=== PATIENT | female | born 1935 | race Caucasian/White ===

== ENCOUNTER → 2019-09-06 | Day surgery (SDC) | payer OTHER ==
--- NOTE | 2019-09-08 01:46 | OP ---
DATE OF OPERATION: 09/06/2019 PREOPERATIVE DIAGNOSIS: Right breast mass 8 o'clock, 1 cm from the nipple. POSTOPERATIVE DIAGNOSIS: Right breast mass 8 o'clock, 1 cm from the nipple. PROCEDURE: Right breast ultrasound-guided core biopsy and U-shaped clip placement. ANESTHESIA: Local. SURGEON: Mariely Rivera MD ESTIMATED BLOOD LOSS: Minimal. COMPLICATIONS: None. DESCRIPTION OF PROCEDURE: Patient was made aware of the risks and benefits of the procedure and consented. She was placed in the supine position. Under sterile conditions with 2% lidocaine for local anesthesia, a small anuel was made in the skin. Using the 10-gauge suction biopsy device with a lateral approach under ultrasound guidance, multiple cores were obtained and submitted to Pathology. Then, under ultrasound guidance, a U-shaped clip was placed into the biopsy region. Well tolerated by the patient. Steri-Strips and sterile bandage was applied. We will contact the patient with the results. MARIELY RIVERA M.D. [id number]
--- NOTE | 2019-09-09 15:55 | PATH ---
Surgical Pathology Report Patient Name: EBEN OTT [facility]. Rec. #: [id number] /Age/Gender: 1935 (Age: 84) / F Account: [id number] Location: [facility] RADIOLOGY U Taken: 09/06/2019 Received: 09/06/2019 Reported: 09/09/2019 Physicians: Ryan Laureano M.D. Specimen(s) Received RIGHT BREAST CORE BX 8:00 1CM FN Clinical History Non-palpable lesion Ultrasound findings: Suspicious Final Diagnosis BREAST, RIGHT, 8:00, 1 CM FN, CORE BIOPSY: INVASIVE DUCTAL CARCINOMA, MODERATELY DIFFERENTIATED, MEASURING AT LEAST 9 MM IN GREATEST DIMENSION IN THIS MATERIAL. Results of ER and MA studies performed at [facility] are as follows: ER (clone [id number] mouse monoclonal antibody by Leica): _X_ Positive: >95 % nuclear staining with strong intensity. PgR (clone16 mouse monoclonal antibody by Leica): _X_ (Low) Positive: 1-2 % nuclear staining with moderate intensity. Results of Her2 & Ki67 studies will be reported separately in an addendum. Positive and negative controls (internal if applicable) show appropriate results. Formalin fixation and cold ischemic times are within current ASCO/CAP recommendations for ER, MA and Her2 testing. Electronically Signed Allison Darby M.D. Addendum Reported: 09/11/2019 Addendum Diagnosis Results of Her2 (IHC) & Ki-67 studies performed at [place], [place] ([id number]) are as follows: Her2 IHC (EP3 from [employer], formerly known as [id number], using Christopher Polymer Refine detection kit):1+ (negative). Ki-67: ~10% (low proliferative index). Positive and negative controls (internal if applicable) show appropriate results. Allison Darby M.D. Gross Description Received in formalin labeled "right breast 8:00, 1 cmfn," is a 2.2 x 1.8 x 0.3 cm aggregate of multiple zapata-yellow, irregular to cylindrical portions of fibroadipose tissue. The formalin is filtered and the specimen is entirely submitted in one cassette. Time to formalin fixation: < 1 minute Total formalin fixation time: Approximately 6 hours. DL/09/06/2019 [facility]09/06/2019
== END | disposition home or self-care (01) ==
LOC: FRADUS-SUR 12:05
PROVIDERS: ATTEND Surgery Surgical Oncology
PROC: 0HBT3ZX Excision of Right Breast, Percutaneous Approach, Diagnostic (ICD-10-PCS; principal; 2019-09-06)
DX: C50.511 Malignant neoplasm of lower-outer quadrant of right female breast (principal); Z17.0 Estrogen receptor positive status [ER+]; N63.13 Unspecified lump in the right breast, lower outer quadrant
CPT/HCPCS: 19083; 87899; 88305-TC; 88342-TC; A4648

== ENCOUNTER 2019-10-08 11:24 | Day surgery (SDC) | payer OTHER ==
--- NOTE | 2019-10-07 09:37 | HP ---
Admitting History and Physical - Primary Care Physician PCP: Antoni Stone - Admission Chief Complaint: right breast cancer History of Present Illness: 84 year old postmenapausal Ashkenazi female with H/O non Hodgkins lymphoma and bone marrow transplant,CHELI and H/O left breast cancer S/P wide excision and mastopexy for 5mm IDC Negative SNBX RT and Herceptin, Tamoxifen and Zometa,Stopped due to dental issues, since it was ER/MD+HER2+ in 2012. Recent mammogram and US showed right breast density at 9:00 which had increased in size. US core bx 09/06/2019 showed 1 cm invasive ductal carcinoma ER+/MD low+, HER2-. No breast MRI since she has a pacemaker. History Source: Patient Limitations to Obtaining History: No Limitations - Past Medical History Pulmonary: Yes: Other (pacemaker) Heme/Onc: Yes: Other (nonhodgkins lymphoma with bone marrow transplant Rotuxin currently CHELI) - Past Surgical History Past Surgical History: Yes: Cholecystectomy Additional Past Surgical History: Left breast wide excision SNBX 03/2012 IDC HER+Herceptin RT zometa Tamoxifen Right hip replacement x2 and left hip replacement bladder surgery 1987 cardiac ablation 2003 temporal artery bx 2011 neg Pacemaker - Smoking History Smoking history: Former smoker Have you smoked in the past 12 months: No If you are a former smoker, when did you quit?: 1979 - Alcohol/Substance Use Hx Alcohol Use: No Home Medications - Allergies Allergies/Adverse Reactions: Allergies Allergy/AdvReac Type Severity Reaction Status Date / Time No Known Allergies Allergy Verified 04/04/12 09:42 - Home Medications Home Medications: Ambulatory Orders BUPROPion HCL [Wellbutrin] 150 mg PO BID 04/04/12 Levothyroxine [Synthroid -] 0.125 mcg PO ASDIR 04/04/12 Multivitamin [Multivitamins] 1 tab PO DAILY 04/04/12 Alprazolam 0.5 mg PO BID 10/02/19 Amlodipine Besylate 5 mg PO DAILY 10/02/19 Atorvastatin Ca [Lipitor] 10 mg PO HS 10/02/19 Juventino/D3/Mag11/Zinc/Band Cutting Machine Operator/Rafa/Bor [Caltrate 600+D Plus Tablet] 1 each PO DAILY 10/02/19 Cyanocobalamin [Vitamin B12 -] 1,000 mcg PO DAILY 10/02/19 Latanoprost 0.005% Eye Drops [Xalatan 0.005% Eye Drops -] 1 drop OD HS 10/02/19 Tamoxifen Citrate 20 mg PO DAILY 10/02/19 Family Medical History Other Family History: maternal cousin x2 breast ca Physical Examination Constitutional: Yes: No Distress Breast(s): Yes: Other (well healed mastopexy incision left breast without recurrence . Right breast no opalpable densities or adenopathy, post bx changes) Problem List - Problems (1) Breast cancer, right breast Problems reviewed: Yes Code(s): C50.911 - MALIGNANT NEOPLASM OF UNSP SITE OF RIGHT FEMALE BREAST Qualifiers: Breast location: lower outer quadrant of breast Estrogen receptor status: positive Patient sex: female Qualified Code(s): C50.511 - Malignant neoplasm of lower-outer quadrant of right female breast; Z17.0 - Estrogen receptor positive status [ER+] Assessment/Plan Right breast wide excision ,mammogram needle loc/mag seed placement ,lymphoscintogram,sentenel node biopsy possible axillary node dissection intraop RT
[2019-10-08 12:25] VITALS: BMI 25.4
[2019-10-08] MEDS ORDERED: KETOROLAC TROMETHAMINE 30 MG/1 ML VIAL IVPUSH PRN (12:25)
[2019-10-08] MEDS ORDERED: ONDANSETRON 4 MG/2 ML VIAL IVPUSH PRN ×2 (12:25→16:42)
[2019-10-08] MEDS ORDERED: DEXTROSE 5%-0.45% SALINE 1,000 ML IV SCH ×2 (12:30→12:45)
[2019-10-08] MEDS ORDERED: MIDAZOLAM HCL 2 MG/2 ML SINGLE DOSE VIAL ONE (12:32)
[2019-10-08] MEDS ORDERED: ONDANSETRON 4 MG/2 ML VIAL IVPB PRN (12:35)
[2019-10-08] MEDS ORDERED: ISOSULFAN BLUE 10 MG/ML VIAL SQ ONE (12:43)
[2019-10-08] MEDS ORDERED: BUPIVACAINE HCL/PF 0.5% (5MG/ML) 10 ML VIAL ONE (12:44)
[2019-10-08] MEDS ORDERED: LIDOCAINE HCL 1%, 10 MG/ML (20ML VIAL) ONE (12:44)
[2019-10-08] MEDS ORDERED: LEVOTHYROXINE NA 125 MCG TABLET (FP) PO SCH (12:45)
[2019-10-08] MEDS ORDERED: DEXAMETHASONE SOD PHOSPHATE 4 MG/1 ML VIAL ONE (14:03)
[2019-10-08] MEDS ORDERED: ONDANSETRON 4 MG/2 ML VIAL ONE (14:03)
[2019-10-08] MEDS ORDERED: ACETAMINOPHEN 325 MG TABLET (FP) PO PRN (15:00)
[2019-10-08] MEDS ORDERED: GUM MASTIC/STORAX/MSAL/ALCOHOL 1 DRP DROPSBTL MC ONE (16:06)
[2019-10-08] MEDS ORDERED: SUCCINYLCHOLINE CHLORIDE 200 MG/10 ML SYRINGE ONE (16:09)
[2019-10-08] MEDS ORDERED: PROPOFOL 20 ML ONE (16:10)
[2019-10-08] MEDS: LABETALOL HCL 5 MG/1 ML (100MG/20 ML VIAL) ONE ×2 (16:40→16:55)
[2019-10-08] MEDS ORDERED: oxyCODONE HCL 5 MG TABLET PO PRN ×4 (16:42→17:00)
[2019-10-08] MEDS ORDERED: PROMETHAZINE HCL 25 MG/1 ML VIAL IVPUSH PRN (16:42)
[2019-10-08] MEDS: ACETAMINOPHEN 325 MG TABLET (FP) PO PRN (19:42)
[2019-10-08] MEDS ORDERED: LATANOPROST 0.005% OPHTH SOLN 2.5ML BOTTLE OD SCH (22:00)
[2019-10-08] MEDS ORDERED: ATORVASTATIN CA 10 MG TABLET (FP) PO SCH (22:00)
[2019-10-08] MEDS ORDERED: ALPRAZolam 0.25 MG TABLET PO PRN (22:00)
[2019-10-08] MEDS ORDERED: buPROPion HCL 100 MG TABLET PO SCH (22:00)
[2019-10-09 09:18] VITALS: BP 144/57; PULSE 67; TEMP 98.4
[2019-10-09] MEDS: ACETAMINOPHEN 325 MG TABLET (FP) PO PRN (09:19)
[2019-10-09] MEDS ORDERED: TAMOXIFEN CITRATE 10 MG TABLET PO SCH (10:00)
[2019-10-09] MEDS ORDERED: amLODIPine BESYLATE 5 MG TABLET (FP) PO SCH (10:00)
--- NOTE | 2019-10-09 13:49 | OP ---
DATE OF OPERATION: 10/08/2019 PREOPERATIVE DIAGNOSIS: Right breast cancer. POSTOPERATIVE DIAGNOSIS: Right breast cancer. PROCEDURE: Post lumpectomy intraoperative radiation therapy for right breast cancer. ATTENDING SURGEON: Antoni Stone MD DEAN FOR [facility]UDENT AFFA[facility]/RADIATION ONCOLOGIST: Jose Miguel Sauer MD ANESTHESIA: General anesthesia. COMPLICATIONS: None. INDICATIONS: Patient is an 84-year-old woman with a clinical stage IA, T1b, N0, M0 moderately differentiated invasive ductal carcinoma, ER/AK positive, HER-2 negative of the right breast with prior history of left breast cancer status post breast conservation therapy with lumpectomy, external beam and intraoperative radiation therapy. She also has a history of non-Hodgkin's lymphoma more remotely. She elected to receive intraoperative radiation therapy to the right breast for her newly diagnosed breast cancer. PROCEDURE: Dr. Antoni Stone performed right lumpectomy and sentinel lymph node biopsy which he has dictated. After excision of additional margins, the lumpectomy cavity was prepared and sized for a 3.5 cm diameter spherical applicator. The applicator was placed into the operative cavity in the right breast at the 8 to 9 o'clock position and the surrounding breast tissues were cinched around the applicator with a Vicryl pursestring suture. An ultrasound and clinical simulation were performed to ensure that the applicator was positioned within the operative bed with close apposition of the surrounding breast tissue to the surface of the applicator. Adequate distance between the applicator and chest wall as well as the skin was ensured via placement of saline-soaked Ray-Niyah gauze between the skin and breast tissue. Ultrasound measurement confirmed a minimum applicator to skin distance of 1.35cm at the superior aspect of the applicator. Shielding material was placed over the breast to reduce scatter radiation. Prior to the treatment the system was double checked with appropriate physics director of quality control measures. The patient then received a total dose of 20 Gy prescribed to 0 mm from the applicator surface with 50 kV x-rays using the Intrabeam. The total time required for the treatment was 18 minutes 38 seconds at a dose rate of 1.079 Gy/minute. When the treatment was completed, a survey of the patient and the room confirmed that the Intrabeam source was off. There were no complications or unplanned interruptions. Dr. Stone removed the radiation applicator from the patient and completed the surgery. DISPOSITION: The patient will be transferred to the recovery room in stable condition following surgery. Ryan LUCIA/[id number] cc: Antoni Stone MD MTDD
--- NOTE | 2019-10-09 15:37 | OP ---
DATE OF OPERATION: 10/08/2019 PREOPERATIVE DIAGNOSIS: Right breast cancer, overlapping regions. POSTOPERATIVE DIAGNOSIS: Right breast cancer, overlapping regions. PROCEDURE: Right breast partial mastectomy with sentinel lymph node biopsy and intraoperative radiation with 5 x 4-cm tissue transfer closure. ANESTHESIA: General laryngeal mask airway anesthesia. PRIMARY SURGEON: Maria Guadalupe Stnoe MD CONVENTIONS RESERVATIONIST: ISRA Cisneros COMPLICATIONS: There were no complications. INDICATIONS: Briefly, the patient is an 84-year-old postmenopausal white female who has a history of non-Hodgkin's lymphoma and has undergone autologous bone marrow transplant. She also has a history of a left breast cancer treated with partial mastectomy and intraoperative radiation and mastopexy back in March of 2012. That was ER/SD positive, HER-2 positive, and she had 2 negative nodes and took Herceptin for a full year and was on tamoxifen. She then developed a recent density in the right breast 9 o'clock region seen on mammography and ultrasound, and core biopsy showed a moderately differentiated invasive duct cancer which was ER positive, SD weakly positive, HER-2 negative, with a low Ki-67. The patient was advised to undergo a right breast partial mastectomy and sentinel lymph node biopsy and was seen by radiation oncology preoperatively and was felt to be a good candidate again for intraoperative radiation. She was brought in for the procedure on October 08, 2019. She underwent a lymphoscintigraphy at [facility], then was brought to [place] where Magseed was placed in the area of the cancer. She was then brought to the holding area. In the holding area, site verification was made and informed consent was obtained. She had COVID testing preoperatively which is negative. DESCRIPTION OF PROCEDURE: She was brought into the operating room and laid on the OR table in a supine position. Venodynes were placed on the lower extremities prior to induction. She received a gram of Ancef prior to incision. She underwent general laryngeal mask airway anesthesia. Lymphazurin blue, 3 mL, was injected intradermally, peritumorally around the cancer site. Massage was instituted. Both breasts were sterilely prepped and draped in the usual fashion, with the right axilla prepped in the field, and she had general laryngeal mask airway anesthesia. Timeout was performed. The right axillary sentinel lymph node biopsy was first performed. An incision was made just below the hair-bearing area of the right axilla, and dissection was undertaken, and 2 blue hot nodes were removed from the level I region of the right axilla. The first sentinel lymph node had a 10-second gamma count of 23,273, and the second sentinel lymph node was blue and hot with a 10-second gamma count of 12,865. A non-sentinel lymph node was also removed and sent separately to pathology in formalin as well. Background count was about 1100 after removal of these 3 nodes. Hemostasis was achieved, and the wound was closed using interrupted 2-0 plain suture. The skin was closed using interrupted 3-0 deep dermal Vicryl suture and a running 4-0 subcuticular Biosyn suture. At this point, the wide excision was undertaken around the hot spot noted by the Sentimag device. A periareolar incision was made around the lateral aspect of the right breast nipple-areolar complex and dissection was undertaken using the Sentimag device to direct the dissection. The breast tissue was completely removed and oriented with a long lateral, short superior suture. Posterior margin of resection was the pectoralis major muscle. The Sentimag confirmed removal of the clip, and we did a specimen radiograph showing removal of the titanium clip as well as the Sentimag seed. At this point, hemostasis was achieved. Intraoperative radiation was then accomplished using the 3.5-cm Intrabeam device which was sterilely placed in the wound, and a 2-0 plain suture was used to pursestring the tissue around the device. Ultrasound was used to show distance of the skin from the device to more than a centimeter in all quadrants. Intraoperative radiation was then accomplished after about 20 minutes. The device was then removed and hemostasis achieved. The wound was copiously irrigated, and a 5 x 4-cm tissue transfer closure was then accomplished by undermining the breast tissue and reapproximating the tissue to fill the defect using 2-0 plain suture. The skin was closed using interrupted 3-0 deep dermal Vicryl suture and a running 4-0 subcuticular Biosyn suture. Mastisol and Steri-Strips were applied over the wound, a compressive dressing placed over this. She was placed in a surgical bra postoperatively, and laryngeal mask airway tube will be removed and she will be recovered and brought to the postanesthesia care unit. The patient will be admitted for a short 23-hour overnight stay and will be discharged home tomorrow morning. All sponge and needle counts were correct at the end of the case. Estimated blood loss was about 20 mL. She was hemodynamically stable throughout. ADDENDUM: It should be noted that separate margins were taken after the wide excision from the superior, inferior, medial, lateral, deep, anterior margin, with sutures marking the biopsy cavity site, and these were set separately down to pathology, and this was done prior to the intraoperative radiation. MARIA GUADALUPE STONE M.D. [id number]
--- NOTE | 2019-10-11 17:06 | PATH ---
Surgical Pathology Report Patient Name: EBEN OTT Med. Rec. #: [id number] /Age/Gender: 1935 (Age: 84) / F Account: [id number] Location: [facility] MED-SURG Taken: 10/08/2019 Received: 10/08/2019 Reported: 10/11/2019 Physicians: Antoni Stone M.D. Specimen(s) Received A: RIGHT AXILLARY SENTINEL LYMPH NODE #1 (,273) B: RIGHT AXILLARY SENTINEL LYMPH NODE #2 (12,865) C: RIGHT AXILLARY NON- SENTINEL LYMPH NODE #3 D: RIGHT BREAST WIDE EXCISION E: RIGHT BREAST ANTERIOR MARGIN F: RIGHT BREAST POSTERIOR MARGIN G: RIGHT BREAST MEDIAL MARGIN H: RIGHT BREAST LATERAL MARGIN I: RIGHT BREAST INFERIOR MARGIN J: RIGHT BREAST SUPERIOR MARGIN Clinical History Right breast 9:00 invasive ductal carcinoma Final Diagnosis A. RIGHT AXILLARY SENTINEL LYMPH NODE #1 (,273), EXCISION: ONE LYMPH NODE, NEGATIVE FOR METASTATIC CARCINOMA (0/1). B. RIGHT AXILLARY SENTINEL LYMPH NODE #2 (12,865), EXCISION: ONE LYMPH NODE, NEGATIVE FOR METASTATIC CARCINOMA (0/1). C. RIGHT AXILLARY NONSENTINEL LYMPH NODE #3, EXCISION: ONE LYMPH NODE, NEGATIVE FOR METASTATIC CARCINOMA (0/1). D. RIGHT BREAST WIDE EXCISION: INVASIVE DUCTAL CARCINOMA, MODERATELY DIFFERENTIATED (TUBULE SCORE 2/3, NUCLEAR GRADE: 3/3, MITOTIC SCORE: 2/3, TOTAL SCORE 7/9, TREVOR GRADE 2), WITH FOCAL MICROPAPILLARY FEATURES, MEASURING 0.8 CM IN GREATEST DIMENSION, MICROSCOPICALLY. DUCTAL CARCINOMA IN SITU (DCIS) IS NOT IDENTIFIED. SURGICAL MARGINS ARE UNINVOLVED BY CARCINOMA. INVASIVE CARCINOMA IS AT 3 MM FROM THE CLOSEST (ANTERIOR) MARGIN. ALSO SEE SPECIMENS E TO J FOR FINAL MARGINS. NO LYMPHOVASCULAR INVASION IS IDENTIFIED. PRIOR BIOPSY SITE WITH REACTIVE CHANGES. REMAINING BREAST TISSUE SHOW FIBROADENOMA, INTRADUCTAL PAPILLOMA, ATYPICAL DUCTAL HYPERPLASIA (ADH), FLAT EPITHELIAL ATYPIA, AND PROLIFERATIVE FIBROCYSTIC CHANGES. PATHOLOGIC STAGE (pTNM): pT1b, pN0 SEE ALSO INVASIVE CARCINOMA CASE SUMMARY BELOW. E. RIGHT BREAST ANTERIOR MARGIN, EXCISION: BENIGN BREAST TISSUE. F. RIGHT BREAST POSTERIOR MARGIN, EXCISION: BENIGN FIBROADIPOSE TISSUE. G. RIGHT BREAST MEDIAL MARGIN, EXCISION: BENIGN BREAST TISSUE. H. RIGHT BREAST LATERAL MARGIN, EXCISION: BENIGN BREAST TISSUE. I. RIGHT BREAST INFERIOR MARGIN, EXCISION: BENIGN BREAST TISSUE. J. RIGHT BREAST SUPERIOR MARGIN, EXCISION: BENIGN BREAST TISSUE. Comments Breast Invasive Carcinoma: Surgical Pathology Case Summary (Based on AJCC TNM 8 th edition) Procedure _x_ Excision (less than total mastectomy) Specimen Laterality _x_ Right Tumor Size _x_ Greatest dimension of largest invasive focus >1 mm (millimeters): 8 mm Histologic Type _x_ Invasive carcinoma of no special type, NOS (ductal) Histologic Grade (Karthaus Histologic Score) Glandular (Acinar)/Tubular Differentiation _x_ Score 2 (10% to 75% of tumor area forming glandular/tubular structures) Nuclear Pleomorphism _x_ Score 3 Mitotic Rate _x_ Score 2 Overall Grade _x_ Grade 2 (scores of 6 or 7) Tumor Focality _x_ Single focus of invasive carcinoma Ductal Carcinoma In Situ (DCIS) _x_ No DCIS in specimen Margins Invasive Carcinoma Margins _x__ Uninvolved by invasive carcinoma Distance from closest margin (millimeters): > 3 mm Closest margin: Invasive carcinoma is at 3 mm from anterior margin in wide excision (specimen D). Additional anterior margin (specimen E) is negative for carcinoma Regional Lymph Nodes _x_ Uninvolved by tumor cells Number of Lymph Nodes Examined: 3 Number of Casm[place] Nodes Examined: 2 Treatment Effect in the Breast _x_ No known presurgical therapy Lymphovascular Invasion _x_ Not identified Pathologic Stage Classification (pTNM, AJCC 8th Edition) Primary Tumor (Invasive Carcinoma) (pT) _x_ pT1b: Tumor >5 mm but =10 mm in greatest dimension Category (pN) _x_ pN0: No regional lymph node metastasis identified or ITCs only Biomarker Studies Results of ER and OH studies performed on prior biopsy ([id number]) at [facility] are as follows: ER (clone [id number] mouse monoclonal antibody by [employer]): _x_ Positive: >95% nuclear staining with strong intensity PgR (clone16 mouse monoclonal antibody by [employer]): _x_ (Low) positive:1-2% nuclear staining with moderate intensity Results of Her2 (IHC) & Ki-67 studies prior biopsy ([id number]) at [place], [place] ([id number] ) are as follows: Her2 IHC (EP3 from [employer], formerly known as [id number], using Christopher Polymer Refine detection kit): 1+ (negative) Ki67: ~10% (low proliferative index) Formalin fixation and cold ischemic times are within current ASCO/CAP recommendations for ER, PgR and Her2 testing. Electronically Signed Barbara Rashid M.D. Gross Description A. Received in formalin, labeled "right axillary sentinel lymph node #1 (30,316)" is a lymph node measuring 0.7 cm in greatest dimension. The specimen is bisected and submitted in toto in one cassette. B. Received in formalin, labeled "right axillary sentinel lymph node # (97,735)" is a lymph node measuring 1.0cm in greatest dimension. The specimen is bisected and submitted in toto in one cassette. C. Received in formalin, labeled "right axillary non-sentinel lymph node #3" is a lymph node measuring 0.9 cm in greatest dimension. The specimen is submitted in toto in one cassette. D. Received in formalin, labeled "right breast wide excision, long stitch lateral, short stitch superior" is a 5.0 x 4.0 x 1.7 cm. zapata-yellow, irregular, portion of fibroadipose tissue. There is a short suture marking the superior aspect and a long suture marking the lateral aspect, per the surgeon. There is no skin or nipple present. The specimen is inked as follows: superior red; lateral blue; inferior orange; medial green; anterior yellow; deep black. The specimen is serially sectioned and reveals an ill-defined mass measuring 0.8 cm in greatest dimension. The mass is 0.3cm to closest margin (anterior) margin. The remaining breast parenchyma displays scattered white fibrous tissue. The specimen is serially sectioned from lateral to medial and entirely submitted in 11 cassettes, with the mass in cassettes 7 and 9. Time to formalin fixation: 3 minutes Total formalin fixation time: 29 hours. E. Received in formalin labeled "right breast anterior margin", is a 1.4 x 1.0 x 0.6 cm portion of fibroadipose tissue with a suture marked biopsy cavity side, per the surgeon. The suture site is inked blue. The new margin is inked black. The specimen is serially sectioned and entirely submitted in 2 cassettes. F. Received in formalin labeled "right breast posterior margin", is a 2.0 x 1.0 x 0.4 cm portion of fibroadipose tissue with a suture marked biopsy cavity side, per the surgeon. The new margin is inked black. The specimen is serially sectioned and entirely submitted in 2 cassettes. G. Received in formalin labeled "right breast medial margin", is a 2.0 x 1.7 x 0.5 cm portion of fibroadipose tissue with a suture marked biopsy cavity side, per the surgeon. The new margin is inked black. The specimen is serially sectioned and entirely submitted in 2 cassettes. H. Received in formalin labeled "right breast lateral margin", is a 2.0 x 1.8 x 0.5 cm portion of fibroadipose tissue with a suture marked biopsy cavity side, per the surgeon. The new margin is inked black. The specimen is serially sectioned and entirely submitted in 2 cassettes. I. Received in formalin labeled "right breast inferior margin", is a 1.5 x 1.5 x 0.5 cm portion of fibroadipose tissue with a suture marked biopsy cavity side, per the surgeon. The new margin is inked black. The specimen is serially sectioned and entirely submitted in 2 cassettes. J. Received in formalin labeled "right breast superior margin", is a 2.0 x 1.3 x 0.8 cm portion of fibroadipose tissue with a suture marked biopsy cavity side, per the surgeon. The new margin is inked black. The specimen is serially sectioned and entirely submitted in 2 cassettes. KWNiraj10/09/2019 patt10/09/2019
== END 2019-10-09 11:15 | disposition home or self-care (01) ==
LOC: FASUSAT 11:24 → FASU 11:24 → FM/S 17:20 → FASUSAT 10-09 11:15
PROVIDERS: ATTEND Surgery Surgical Oncology
PROC: 0HBT0ZZ Excision of Right Breast, Open Approach (ICD-10-PCS; principal; 2019-10-08 14:13)
PROC: DMY17ZZ Contact Radiation of Right Breast (ICD-10-PCS; 2019-10-08 14:13)
DX: C50.811 Malignant neoplasm of overlapping sites of right female breast (principal); Z17.0 Estrogen receptor positive status [ER+]; Z95.1 Presence of aortocoronary bypass graft; Z80.3 Family history of malignant neoplasm of breast
CPT/HCPCS: 19281; 76098-TC-FY; 76641-TC-50; 77290; 77300; 77316; 77332; 77370-TC; 77424; 78195-TC; 88307-TC; 94760; A9541; C9726